=== PATIENT | female | born 1980 | race Two or more races ===

== ENCOUNTER 2016-12-28 05:20 | Emergency (ER) | payer OTHER ==
[~2016-12-28] VITALS: Ht 167.6 cm; Wt 68.0 kg
[2016-12-28] MEDS ORDERED: TAPAZOLE PO (15:21)
[2016-12-28] MEDS ORDERED: PRENATE ELITE1 EAC2 (15:32)
== END 2016-12-28 10:48 | disposition home or self-care (01) ==
LOC: ER 05:20
DX: O03.4 Incomplete spontaneous abortion without complication (principal); R10.2 Pelvic and perineal pain